=== PATIENT | female | born 1975 | race Caucasian/White ===

== ENCOUNTER 2016-12-21 21:14 | Emergency (ER) | payer OTHER, MEDICARE ==
[~2016-12-21] VITALS: Ht 149.9 cm; Wt 79.8 kg
[2016-12-21 21:54] VITALS: BP 133/80
[2016-12-21 22:15] LABS: ABSOLUTE BASOPHIL COUNT 0.1 /CUMM (0.0-0.2); ABSOLUTE EOSINOPHIL COUNT 0.1 /CUMM (0.0-0.7); ABSOLUTE GRANULOCYTE CT 5.1 /CUMM (1.4-6.5); ABSOLUTE LYMPH COUNT 2.1 /CUMM (1.2-3.4); ABSOLUTE MONOCYTE COUNT 0.5 /CUMM (0.10-0.60); BASOPHIL % 0.6 % (0.0-2.0); EOSINOPHIL % 1.4 % (0-5); GRANULOCYTE % 64.1 % (42.2-75.2); HEMATOCRIT 39.3 % (37-47); MEAN CORPUSCULAR VOLUME 81.8 FL (81.0-99.0); MEAN PLATELET VOLUME 9.8 FL (7.4-10.4); PLATELET COUNT 281 /CUMM (130-400); RBC DISTRIBUTION WIDTH 14.3 % (11.5-14.5); RED BLOOD CELL CT 4.81 /CUMM (4.20-5.40); WHITE BLOOD CELL COUNT 7.9 /CUMM (4.8-10.8)
--- NOTE | 2016-12-22 00:18 | ED GI/GU/ABDOMINAL COMPLAINT ---
History of Present Illness General Chief Complaint: Abdominal Pain/Flank Pain Stated Complaint: MID ABD PAIN Source: patient Exam Limitations: no limitations Vital Signs & Intake/Output Vital Signs & Intake/Output Vital Signs Date Time Temp Pulse Resp B/P B/P Pulse O2 O2 Flow FiO2 Mean Ox Delivery Rate 12/21 2154 97.6 75 18 133/80 98 Room Air ED Intake and Output 12/22 0000 12/21 1200 Intake Total Output Total Balance Patient 176 lb Weight Weight Reported by Patient Measurement Method Allergies Coded Allergies: Sulfa (Sulfonamide Antibiotics) (UNKNOWN 12/08/15) ciprofloxacin (From C[facility]RO HC) (UNKNOWN 12/08/15) hydrocortisone (From [facility] HC) (UNKNOWN 12/08/15) latex (UNKNOWN 12/08/15) sulfamethoxazole (From BACTRIM) (UNKNOWN 12/08/15) trimethoprim (From BACTRIM) (UNKNOWN 12/08/15) Triage Note: PT TO TRIAGE WITH C/O EPIGASTRIC PAIN 02/07 ON/OFF SINCE YESTERDAY, PT DENIES N/V/D. PT RETURNED FROM [employer] ON 12/12/16. NO OTHER COMPLAINTS. PT AFEBRILE, VSS. Triage Nurses Notes Reviewed? yes ? n Is pt currently ? No HPI: Patient presents for evaluation of an epigastric abdominal pain that began last night. Patient can't state if it was abrupt or gradual in onset. She is not sure if it's been intermittent or constant. She states tonight while at dinner she noticed it again and it seemed more severe. She cannot describe the characteristic of the pain but states it might be dull and achy. She can't state whether or not it's worse with eating. She states occasionally does get worse with deep inspiration. There has been no associated fever, cold symptoms, chest pain, dyspnea, vomiting or diarrhea. (Patient states she just got over a diarrheal illness on the heels of a vacation). Past History Travel History Traveled to [place] past 21 day Yes Medical History Any Pertinent Medical History? see below for history Psychiatric: anxiety, OCD Surgical History Surgical History: non-contributory Psychosocial History What is your primary language [place]ar[place] Tobacco Use: Never used Family History Hx Contributory? No (question of gallbladder diseas) Review of Systems Review of Systems Constitutional: Reports: no symptoms. EENTM: Reports: no symptoms. Respiratory: Reports: no symptoms. Cardiovascular: Reports: no symptoms. GI: Reports: see HPI. Genitourinary: Reports: no symptoms. Musculoskeletal: Reports: no symptoms. Skin: Reports: no symptoms. Neurological/Psychological: Reports: no symptoms. Hematologic/Endocrine: Reports: no symptoms. Immunologic/Allergic: Reports: no symptoms. All Other Systems: Reviewed and Negative Physical Exam Physical Exam Gastrointestinal: see below Comments: Gen.: Well-nourished, well-developed, no acute respiratory distress. Head: Normocephalic, atraumatic. Eyes: Normal inspection bilaterally Ears: Normal inspection bilaterally Nose: Normal inspection Throat/mouth : Moist mucosa Neck: Supple, full range of motion, no goiter Heart: Regular rate and rhythm, no murmurs rubs or gallops Lungs: Clear to auscultation bilaterally with normal air entry Chest: Nontender Back: Normal range of motion Abdomen: Soft, mild epigastric abdominal tenderness without rebound or guarding, nondistended, normal bowel sounds Extremities: Normal range of motion grossly, equal radial pulses, no cyanosis clubbing or edema Neurologic: Cranial nerves grossly intact, speech is clear Skin: warm and dry Psychiatric: Calm, cooperative, no apparent delusions or hallucinations, anxious appearing at times Core Measures ACS in differential dx? No Severe Sepsis Present: No Septic Shock Present: No Progress Differential Diagnosis: PANCREATITIS, BILIARY COLIC, PEPTIC ULCER DISEASE, DIVERTICULITIS Plan of Care: Orders Procedure Date/time Status URINE 12/21 2210 Complete LIPASE 12/21 2128 Complete COMPREHENSIVE METABOLIC PANEL 12/21 2128 Complete CBC WITHOUT DIFFERENTIAL 12/21 2128 Complete AMYLASE 12/21 2128 Complete Laboratory Tests 12/21/162219: Urine Test NEGATIVE 12/21/16 2210: Anion Gap 12, Estimated GFR > 60, BUN/Creatinine Ratio 20.0, Glucose 84, Calcium 9.8, Total Bilirubin 0.4, AST 20, ALT 37, Alkaline Phosphatase 81, Total Protein 8.1, Albumin 4.5, Globulin 3.6, Albumin/Globulin Ratio 1.3, Amylase 68, Lipase 79, CBC w Diff NO MAN DIFF REQ, RBC 4.81, MCV 81.8, MCH 27.0, RDW 14.3, MPV 9.8, Gran % 64.1, Lymphocytes % 27.2, Monocytes % 6.7, Eosinophils % 1.4, Basophils % 0.6, Absolute Granulocytes 5.1, Absolute Lymphocytes 2.1, Absolute Monocytes 0.5 , Absolute Eosinophils 0.1, Absolute Basophils 0.1, PUBS MCHC 33.0 Diagnostic Imaging: Discussed w/RAD: CT Scan. Radiology Impression: PATIENT: AMILCAR MORALES PRESENT AGE: 41 PATIENT ACCOUNT NO: [id number] : 75 LOCATION: [facility] ([facility] ORDERING PHYSICIAN: GABRIEL MALONEY MD SERVICE DATE: 12/22/16 EXAM TYPE: CAT - CT ABD & PELVIS W IV CONTRAST EXAMINATION: CT ABDOMEN AND PELVIS WITH CONTRAST CLINICAL INFORMATION: Epigastric abdominal pain and tenderness. COMPARISON: None available. TECHNIQUE: Multidetector volumetric imaging was performed of the abdomen and pelvis before and after the IV administration of 95 mL of Optiray 320 intravenous contrast. Sagittal and coronal reformatted images were obtained on the technologist's workstation. FINDINGS: The lung bases are clear. There is a 3.1 cm cyst within the right lobe of the liver. The liver is otherwise unremarkable. Spleen is mildly enlarged, measuring 13.6 cm in diameter. The adrenal glands, gallbladder, and pancreas are normal. The kidneys exhibit symmetric nephrograms without evidence of hydronephrosis or nephrolithiasis. There are a few small low-density lesions within the lower pole of the right kidney, possibly small cysts that are too small to characterize. The large and small bowel are normal in caliber without evidence of mechanical obstruction. No focal inflammatory changes adjacent to the large or the small bowel. The appendix is normal. There is no free air and there is no intra-abdominal free fluid. No mesenteric or retroperitoneal adenopathy. The pelvic viscera are normal. Small peripherally enhancing cyst within the left ovary most likely reflects a corpus luteum cyst. No pelvic adenopathy. No free fluid within the pelvis. There are no acute osseous abnormalities. No significant soft tissue abnormality. IMPRESSION: - No acute findings. - There are a few small low- density lesions within the lower pole of the right kidney, possibly small cysts that are too small to characterize. An ultrasound could be obtained for more definitive assessment - Mild splenomegaly. - Liver cyst. DICTATED BY: GABRIEL BEST MD DATE/TIME DICTATED:12/22/16122 PRODUCER ARBORIST MANAGER:PRIMO DATE/TIME TRANSCRIBED:12/22/16122 CONFIDENTIAL, DO NOT COPY WITHOUT APPROPRIATE AUTHORIZATION. <Electronically signed in Other Vendor System> SIGNED BY: GABRIEL BEST MD 12/22/16 0132 Initial ED EKG: none Comments: Patient has expressed concern with IV contrast. I have ordered a CT at her request with IV contrast but she admits that she's not sure if she can go through with it (patient has severe anxiety and OCD). 12/22/2016 1:59:28 AM I have updated Yanni on her test results. I have advised her of the liver cyst seen. She'll follow-up with her primary care physician for reevaluation and further testing of the gallbladder. Patient declined a prescription for pain medication or an antacid. She is very reluctant to take any new medications, preferring them to come from her primary care doctor. Departure Departure Disposition: HOME OR SELF CARE Condition: Stable Clinical Impression Primary Impression: Nonspecific abdominal pain Referrals: LESLIE GILBERT DO (PCP/Family) Additional Instructions: Follow-up with Leslie Gilbert DO this week for reevaluation of your abdominal pain and further testing is indicated. Low-fat diet given the possibility of gallbladder disease. Return if any concerns or sudden worsening. Please note that there might be incidental findings in your evaluation that are unrelated to the current emergency department visit. Please notify your primary care doctor about this emergency department visit in order to obtain and review all of the testing performed so that these incidental findings can be monitored as needed. If you had an x-ray performed, please understand that some fractures may not be seen on the initial set of x-rays. If your symptoms persist you might need a repeat set of x-rays to check for such a fracture. If you had a laceration evaluated, please understand that foreign bodies such as glass or wood may not be visible to the naked eye or on plain x-rays. If the wound becomes red, swollen, increasingly more painful or if there is any drainage from the wound, please have it reevaluated by a physician for the possibility of a retained foreign body. Thank you for choosing the [facility] Emergency Department for your care. It was a pleasure to serve you today. Gabriel Maloney M.D. [facility] Departure Forms: Customer Survey General Discharge Information
--- NOTE | 2016-12-22 01:32 | CT SCAN REPORT ---
EXAMINATION: CT ABDOMEN AND PELVIS WITH CONTRAST CLINICAL INFORMATION: Epigastric abdominal pain and tenderness. COMPARISON: None available. TECHNIQUE: Multidetector volumetric imaging was performed of the abdomen and pelvis before and after the IV administration of 95 mL of Optiray 320 intravenous contrast. Sagittal and coronal reformatted images were obtained on the technologist's workstation. FINDINGS: The lung bases are clear. There is a 3.1 cm cyst within the right lobe of the liver. The liver is otherwise unremarkable. Spleen is mildly enlarged, measuring 13.6 cm in diameter. The adrenal glands, gallbladder, and pancreas are normal. The kidneys exhibit symmetric nephrograms without evidence of hydronephrosis or nephrolithiasis. There are a few small low-density lesions within the lower pole of the right kidney, possibly small cysts that are too small to characterize. The large and small bowel are normal in caliber without evidence of mechanical obstruction. No focal inflammatory changes adjacent to the large or the small bowel. The appendix is normal. There is no free air and there is no intra-abdominal free fluid. No mesenteric or retroperitoneal adenopathy. The pelvic viscera are normal. Small peripherally enhancing cyst within the left ovary most likely reflects a corpus luteum cyst. No pelvic adenopathy. No free fluid within the pelvis. There are no acute osseous abnormalities. No significant soft tissue abnormality. IMPRESSION: - No acute findings. - There are a few small low-density lesions within the lower pole of the right kidney, possibly small cysts that are too small to characterize. An ultrasound could be obtained for more definitive assessment - Mild splenomegaly. - Liver cyst.
== END 2016-12-22 02:15 ==
LOC: ERH 21:14
PROVIDERS: Emergency Medicine
DX: R10.13 Epigastric pain (principal)
CPT/HCPCS: 74177; 81025